=== PATIENT | male | born 1990 | race Caucasian/White ===

== ENCOUNTER 2018-04-23 08:32 | Emergency (ER) | payer BC ==
[~2018-04-23] VITALS: Ht 175.3 cm; Wt 86.2 kg
== END 2018-04-23 10:27 | disposition home or self-care (01) ==
LOC: ER 08:32
DX: I05.0 Rheumatic mitral stenosis (principal); Z88.0 Allergy status to penicillin; Z88.8 Allergy status to other drugs, medicaments and biological substances; F17.200 Nicotine dependence, unspecified, uncomplicated
CPT/HCPCS: 96365; 99283; J2930

== ENCOUNTER 2018-04-24 00:03 | Day surgery (SDC) | payer BC | END 2018-04-24 11:45 | disposition home or self-care (01) | LOC: ATC 00:03 | DX: G35 Multiple sclerosis (principal); F17.210 Nicotine dependence, cigarettes, uncomplicated | CPT/HCPCS: 96365; J2930 ==

== ENCOUNTER 2018-04-25 00:04 | Day surgery (SDC) | payer BC | END 2018-04-25 09:02 | disposition home or self-care (01) | LOC: ATC 00:04 | DX: G35 Multiple sclerosis (principal); F17.210 Nicotine dependence, cigarettes, uncomplicated | CPT/HCPCS: 96365; J2930 ==

== ENCOUNTER 2018-04-26 10:54 | Day surgery (SDC) | payer BC | END 2018-04-26 11:31 | disposition home or self-care (01) | LOC: ATC 10:54 | DX: G35 Multiple sclerosis (principal); F17.210 Nicotine dependence, cigarettes, uncomplicated | CPT/HCPCS: 96365; J2930 ==